=== PATIENT | female | born 1955 | race Native Hawaiian/Other Pacific Islander ===

== ENCOUNTER 2022-03-20 12:02 | Inpatient (IN) | payer OTHER, SELFPAY ==
[2022-03-20] VITALS (25 sets, daily range): BP systolic 95–144; BP diastolic 54–79; PULSE 60–88; RESP 12–19; TEMP 36.4–36.7; O2SAT 89–99; BMI 29.9
--- NOTE | 2022-03-20 12:56 | ECG_ITS ---
[facility] Test Date: 2022-03-20 Pat Name: Lupe Conway Department: Room: Gender: Female Welfare Interviewer: : 1955 Requested By: Mick Claudio Order Number: [id number] Abdulkadir MD: Jayne Bob M.D. Measurements Intervals [place] Rate: 65 P: 76 ND: 166 QRS: -11 QRSD: 87 T: 49 QT: 379 QTc: 394 Interpretive Statements SINUS RHYTHM ST DEVIATION AND MODERATE T-WAVE ABNORMALITY, CONSIDER ANTEROLATERAL ISCHEMIA [-0.1+ mV T-WAVE IN V3-V6] No previous ECG available for comparison Electronically Signed On 03-20-2022 21:48:43 CDT by Jayne Bob M.D. [id number]
--- NOTE | 2022-03-20 12:56 | XR_ITS ---
WS: [id number] Exam: XR chest 1V portable [id number] Date/Time of Exam: 03/20/2022 12:56 PM Reason For Exam: chest pain No priors. Findings: The lungs are clear and fully expanded. Costophrenic angles are sharp. No infiltrates. Bronchovascula r relief appears normal. Cardiac silhouette is unremarkable. Bony elements are intact. XR/XR chest 1V portable [id number] IMPRESSION: Unremarkable chest radiograph.
--- NOTE | 2022-03-20 13:09 | CT_ITS ---
WS: [id number] CTA THORACIC AORTA WITH AND WITHOUT CONTRAST. HISTORY: rule out dissection TECHNIQUE: CT imaging of the thorax is performed with and without contrast. After noncontrast imaging is performed, CT angiogram is performed during injection of Omnipaque 300; 95 mL IV.. Sagittal and c oronal reconstructions, sagittal and coronal MIP imaging is submitted. All CT scans at [facility] use at least one of these dose optimization techniques: automated exposure control; mA and/or kV adjustment per patient size (includes targeted exams where dose is matched to clinical indication); or iterative reconstruction. DLP: 1705.79 mGy.cm COMPARISON: None available. Good contrast opacification of the thoracic aorta. Normal-sized thoracic aorta. No dissection or sign ificant atherosclerotic plaque. Aortic root and ascending aorta and the arch are normal. Origin of th e great vessels is normal. Descending aorta with very minimal atherosclerotic plaque and intimal thic kening. Pulmonary artery is normal proximally. No dilatation. No proximal thrombus. Normal size heart . No pericardial or pleural effusion. Noncalcified ovoid 6 mm nodule RIGHT lower lobe. No pleural eff usion. No axillary or hilar adenopathy. Small hiatal hernia. There are several small low-attenuation lesions scattered throughout the liver consistent with cysts. There is a bulging of the contour and variable enhancement involving the spleen. Splenic artery is b eing draped anteriorly. Due to the configuration of the spleen, and underlying mass is not excluded. On the precontrast images there is no increased density to suggest hemorrhage. CT/CT angio chest [id number] IMPRESSION: 1. Very minimal atherosclerotic changes within the thoracic aorta. No dissecti on or aneurysm. 2. 6 mm noncalcified nodule RIGHT lower lobe. Recommend follow-up chest CT in 6 months. 3. Abnormal configuration and enhancement of the spleen. The abnormal enhancem ent may be secondary to the sinusoids and normal enhancement variability. The o verall configuration of the spleen is abnormal. At this time recommend ultrasou nd evaluation of the spleen to evaluate for mass. Follow-up evaluation by CT ma y be necessary.
[2022-03-20] MEDS: aspirin 81 mg Chew Tablet 324 MG PO (13:19)
[2022-03-20 13:20] LABS: Basophils # 0.1 10^3/uL (0.0-0.1); Basophils % 0.6 %; Eosinophils # 0.3 10^3/uL (0.0-0.8); Eosinophils % 3.5 %; Hematocrit 39.5 % (37.0-47.0); Hemoglobin 12.9 g/dL (11.5-15.3); Mean Corpuscular HGB Conc 32.7 g/dL (30.0-36.0); Mean Corpuscular Hemoglobin 27.6 pg (28.0-34.0); Mean Corpuscular Volume 84.6 fl (81-99); Mean Platelet Volume 10.6 fL (7.4-10.4); Monocytes # 0.5 10^3/uL (0.2-0.9); Monocytes % 6.1 %; Neutrophils # 5.09 10^3/uL (1.8-7.7); Neutrophils % 64.3 %; Nucleated Red Blood Cells % 0 %; Platelet Count 275 10^3/cmm (130-400); Red Blood Count 4.67 10^6/uL (4.1-5.3); White Blood Count 7.9 10^3/uL (4.0-10.0)
[2022-03-20 13:32] LABS: Troponin(5th) Baseline 72 ng/L (0-10)
[2022-03-20 13:34] LABS: Alanine Aminotransferase 19 U/L (0-33); Albumin Level 4.4 g/dL (3.5-5.2); Alkaline Phosphatase 89 IU/L (35-105); Anion Gap 17.8 (5-19); Aspartate Amino Transferase 19 U/L (0-32); Blood Urea Nitrogen 12 mg/dL (8-23); Calcium 10.3 mg/dL (8.5-10.5); Carbon Dioxide 20 mmol/L (22-29); Chloride 104 mmol/L (98-107); Globulin 2.5 g/dL (1.3-4.6); Glomerular Filtration Rate 71.8 mL/min (90-130); Glucose 94 mg/dL (65-115); Lipase 37 U/L (13-60); Osmolality Calculated 286 mOsm/kg (285-295); Potassium 3.8 mmol/L (3.5-5.1); Sodium 138 mmol/L (136-145); Total Bilirubin 0.2 mg/dL (0.15-1.2); Total Protein 6.9 g/dL (6.6-8.7)
--- NOTE | 2022-03-20 14:03 | W.ED.CHESTPA ---
HPI - Chest Pain General: Chief Complaint: Chest Pain Stated Complaint: chest pains Time Seen by Provider: 03/20/22 12:45 History of Present Illness: Patient comes in with chest pain. She describes it as midsternal pressure that radiates to her left arm and her jaw. Started last night, has been constant. Denies any known coronary artery disease. Associated symptoms: Deny abdominal pain, dyspnea, fever(s), nausea, palpitations or vomiting Review of Systems Const: Denies: fever(s) or body aches Eyes: Denies: change in vision or blurry vision ENMT: Denies: throat pain or odynophagia Card: Reports: chest pain; Denies: palpitations Resp: Denies: dyspnea or productive cough GI: Denies: abdominal pain, nausea or vomiting : Denies: flank pain or dysuria Musc: Denies: neck pain or back pain Skin/Breast: Denies: rash or pruritus Neuro: Denies: headache(s) or numbness in extremities Psych: Denies: anxiety or change in appetite Endo: Denies: polyuria or excessive sweating Physical Exam Const: COMMON NORMALS: no acute distress, patient oriented x3, healthy appearing and alert HENMT: COMMON NORMALS: normocephalic and atraumatic HEAD & SCALP: normocephalic and atraumatic Eye: COMMON NORMALS: Equal, round and reactive pupils present and EOMs intact bilaterally PUPIL: Yes Equal, round and reactive pupils present Neck/C-Spine: COMMON NORMALS: full ROM and supple Resp: COMMON NORMALS: normal respiratory effort, No retractions and No use of accessory muscles Cardio: COMMON NORMALS: regular rate and regular rhythm RATE: regular rate RHYTHM: regular rhythm GI: COMMON NORMALS: Normal to inspection, nondistended, normoactive bowel sounds present, Soft to palpation and non-tender PALPATION: Yes Soft to palpation Back/Pelvis: COMMON NORMALS: thoracic and lumbar spine normal to inspection and no thoracic nor lumbar tenderness Extremity: COMMON NORMALS: normal to inspection and full ROM Neuro: COMMON NORMALS: patient oriented x3 SENSORIUM/ORIENTATION: Yes alert Psych: COMMON NORMALS: mental status grossly normal and cooperative Skin: COMMON NORMALS: no rashes or lesions noted and no wounds GENERAL SKIN EXAM: no rashes or lesions noted Course Vital Signs: Vital signs: Vital Signs Temperature 97.6 F 03/20/22 12:27 Pulse Rate 88 03/20/22 17:12 Respiratory Rate 18 03/20/22 16:09 Blood Pressure 124/76 03/20/22 12:27 Pulse Oximetry 95 03/20/22 17:12 MDM - Chest Pain Medical Decision Making Patient comes in with chest pain. She describes it as midsternal pressure that radiates to her left arm and her jaw. Started last night, has been constant. Denies any known coronary artery disease. Physical exam is unremarkable. Will check labs, CT, EKG, x-ray give aspirin, give nitro sublingual, and reassess. On reassessment the patient states that her pain has come back and is worse than before. On physical exam she is writhing in the gurney holding her chest. Repeat EKG is concerning for ST elevation ID which is new when compared to the previous EKG done when she arrived. We activated the Sr. Payroll Manager. We will give her heparin bolus, sublingual nitro, IV morphine, and consult cardiology. Cardiology has seen the patient here in the department and will take her to the Sr. Payroll Manager. Lab Data : 03/20/22 12:40 03/20/22 12:40 Radiology Impressions Chest X-Ray 03/20/22 12:56 IMPRESSION: Unremarkable chest radiograph. Chest CTA 03/20/22 13:09 IMPRESSION: 1. Very minimal atherosclerotic changes within the thoracic aorta. No dissection or aneurysm. 2. 6 mm noncalcified nodule RIGHT lower lobe. Recommend follow-up chest CT in 6 months. 3. Abnormal configuration and enhancement of the spleen. The abnormal enhancement may be secondary to the sinusoids and normal enhancement variability. The overall configuration of the spleen is abnormal. At this time recommend ultrasound evaluation of the spleen to evaluate for mass. Follow-up evaluation by CT may be necessary. Laboratory Results WBC 7.9 10^3/uL (4.0-10.0) 03/20/22 12:40 RBC 4.67 10^6/uL (4.1-5.3) 03/20/22 12:40 Hgb 12.9 g/dL (11.5-15.3) 03/20/22 12:40 Hct 39.5 % (37.0-47.0) 03/20/22 12:40 MCV 84.6 fl (81-99) 03/20/22 12:40 MCH 27.6 pg (28.0-34.0) L 03/20/22 12:40 MCHC 32.7 g/dL (30.0-36.0) 03/20/22 12:40 RDW 14.0 % (12.1-15.1) 03/20/22 12:40 Plt Count 275 10^3/cmm (130-400) 03/20/22 12:40 MPV 10.6 fL (7.4-10.4) H 03/20/22 12:40 Neut % (Auto) 64.3 % 03/20/22 12:40 Lymph % (Auto) 25.0 % 03/20/22 12:40 [place] % (Auto) 6.1 % 03/20/22 12:40 Eos % (Auto) 3.5 % 03/20/22 12:40 Baso % (Auto) 0.6 % 03/20/22 12:40 Neut # (Auto) 5.09 10^3/uL (1.8-7.7) 03/20/22 12:40 Lymph # (Auto) 2.0 10^3/uL (0.8-4.8) 03/20/22 12:40 [place] # (Auto) 0.5 10^3/uL (0.2-0.9) 03/20/22 12:40 Eos # (Auto) 0.3 10^3/uL (0.0-0.8) 03/20/22 12:40 Baso # (Auto) 0.1 10^3/uL (0.0-0.1) 03/20/22 12:40 Nucleated RBC % (auto) 0 % 03/20/22 12:40 Nucleated RBCs # 0.0 /100WBC 03/20/22 12:40 Sodium 138 mmol/L (136-145) 03/20/22 12:40 Potassium 3.8 mmol/L (3.5-5.1) 03/20/22 12:40 Chloride 104 mmol/L (98-107) 03/20/22 12:40 Carbon Dioxide 20 mmol/L (22-29) L 03/20/22 12:40 Anion Gap 17.8 (5-19) 03/20/22 12:40 BUN 12 mg/dL (8-23) 03/20/22 12:40 Creatinine 0.8 mg/dL (0.5-0.9) 03/20/22 12:40 GFR Calculation 71.8 mL/min (90-130) L 03/20/22 12:40 Glucose 94 mg/dL (65-115) 03/20/22 12:40 Calculated Osmolality 286 mOsm/kg (285-295) 03/20/22 12:40 Calcium 10.3 mg/dL (8.5-10.5) 03/20/22 12:40 Total Bilirubin 0.2 mg/dL (0.15-1.2) 03/20/22 12:40 AST 19 U/L (0-32) 03/20/22 12:40 ALT 19 U/L (0-33) 03/20/22 12:40 Alkaline Phosphatase 89 IU/L (35-105) 03/20/22 12:40 Troponin T Baseline 72 ng/L (0-10) H 03/20/22 12:40 Troponin T 120 Minute 68.48 ng/L (0-10) H 03/20/22 14:40 Delta Troponin T -3.52 ABS# (0-10) L 03/20/22 14:40 Total Protein 6.9 g/dL (6.6-8.7) 03/20/22 12:40 Albumin 4.4 g/dL (3.5-5.2) 03/20/22 12:40 Globulin 2.5 g/dL (1.3-4.6) 03/20/22 12:40 Lipase 37 U/L (13-60) 03/20/22 12:40 Critical Care Time Critical Care Time: Critical Care Time: Yes Total Critical Care Time: 35 Attestation: This case had a high probability of a clinically significant, sudden, or life threatening deterioration of this patient's condition which required my full and direct attention, intervention and personal management. Discharge Plan Discharge Patient Disposition: Admitted As Inpatient Admit Provider: Kamar Moy Clinical Impression: ST elevation (STEMI) myocardial infarction Condition: Stable Coding Level of Care Code ED Research Software Engineer for [place] Fwd Exam Comprehensive
[2022-03-20] MEDS: iohexol 300 mg/mL 100 mL Btl IV (14:06)
[2022-03-20] MEDS: heparin 5,000 unit/mL INJ 1 mL 4000 UNIT IVP (14:56)
[2022-03-20] MEDS: nitroglycerin 0.4 mg sublingual Tablet SUBLINGUAL (14:56)
--- NOTE | 2022-03-20 14:56 | ECG_ITS ---
[facility] Test Date: 2022-03-20 Pat Name: Lupe Conway Department: Room: Gender: Female Order Entry Administrator: : 1955 Requested By: Mick Claudio Order Number: [id number] Abdulkadir MD: Jayne Bob M.D. Measurements Intervals [place] Rate: 59 P: 146 NM: 169 QRS: 8 QRSD: 88 T: 128 QT: 424 QTc: 421 Interpretive Statements ECTOPIC ATRIAL BRADYCARDIA POSSIBLE LEFT ATRIAL ENLARGEMENT [-0.1mV P-WAVE IN V1/V2] LATERAL MYOCARDIAL INFARCTION , PROBABLY RECENT Interpretation limited by baseline artifact Compared to ECG 03/20/2022 12:11:59 Bradycardia, nonsinus now present Myocardial infarct finding now present Sinus rhythm no longer present T-wave abnormality no longer present Possible ischemia no longer present Electronically Signed On 03-21-2022 11:47:49 CDT by Jayne Bob M.D. [id number]
[2022-03-20] MEDS: morphine 4 mg/mL SDV 1 mL IVP (14:57)
[2022-03-20] MEDS: clopidogrel 300 mg Tablet 600 MG PO (14:59)
--- NOTE | 2022-03-20 15:11 | P.HP_ITS ---
Providers/Chief Complaint Admitting Physician: Kamar Moy MD Chief Complaint: chest pains History of Present Illness Lupe Conway is a 66 year old female with no significant prior cardiac history has presented with chest pain symptoms. According to patient he has been having chest discomfort since last night. It is on and off. Radiates to the left arm and jaw. EKG initially showed some ST depressions however she developed more significant chest pain and on repeat EKG she had dynamic changes with borderline ST elevations in lateral leads. Her labs showed her initial troponin of 70. CT scan was performed to rule out aortic dissection which was negative for it. She was emergently taken to the cardiac Show Design Supervisor. Coronary angiogram showed patent coronary arteries with no significant stenosis. LV gram showed normal function Review of Systems Const: Denies: fever(s) or body aches Eyes: Denies: change in vision or blurry vision ENMT: Denies: throat pain or odynophagia Card: Reports: chest pain; Denies: palpitations Resp: Denies: dyspnea or productive cough GI: Denies: abdominal pain, nausea or vomiting : Denies: flank pain or dysuria Musc: Denies: neck pain or back pain Skin/Breast: Denies: rash or pruritus Neuro: Denies: headache(s) or numbness in extremities Psych: Denies: anxiety or change in appetite Endo: Denies: polyuria or excessive sweating Medications/Allergies Home Medications Medication Instructions Recorded Confirmed Last Taken Type baclofen 10 mg tablet 5 - 10 mg PO TID PRN 03/20/22 03/20/22 Unknown History dicyclomine 10 mg capsule 10 mg PO TID PRN 03/20/22 03/20/22 Unknown History fluoxetine 20 mg capsule 20 mg PO DAILY 03/20/22 03/20/22 03/19/22 History hydroxyzine HCl 10 mg tablet 10 mg PO TID PRN 03/20/22 03/20/22 Unknown History meclizine 25 mg tablet 25 mg PO TID PRN 03/20/22 03/20/22 Unknown History naproxen sodium 220 mg capsule 220 mg PO BID PRN 03/20/22 03/20/22 Unknown History sumatriptan succinate 50 mg tablet 50 mg PO Q2H PRN 03/20/22 03/20/22 Unknown History Allergies Allergy/AdvReac Type Severity Reaction Status Date / Time Beef Containing Products Allergy Severe Unknown Verified 03/20/22 13:43 Vitals/I&O/Wt Last Vital Signs Temp 97.6 F 03/20/22 12:27 Pulse 79 03/20/22 13:05 Resp 15 03/20/22 13:05 BP 124/76 03/20/22 12:27 Pulse Ox 99 03/20/22 13:05 Weight last 48 hrs Weight 180 lb Physical Exam Narrative: GENERAL: Patient is alert, awake and oriented x3. [] NECK: No jugular vein distension. [] HEENT: No cyanosis. No icterus. No pallor. [] HEART: Regular S1 and S2. No murmur, rub or gallop. [] LUNGS: Clear to auscultate bilaterally. [] ABDOMEN: Soft, nontender and nondistended. Positive bowel sounds. No guarding, rebound or tenderness. [] CENTRAL NERVOUS SYSTEM: Grossly nonfocal. [] EXTREMITIES: Lower extremities with no edema bilaterally. Pulses palpable in the lower extremities, both dorsalis pedis and posterior tibial. [] Data : 03/20/22 12:40 03/20/22 12:40 A&P Assessment and plan (1) NSTEMI (non-ST elevated myocardial infarction): Status: Acute (2) Chest pain: Status: Acute Plan Patient presented with chest pain and dynamic EKG changes. Coronary angiogram demonstrated patent coronary arteries with no significant stenosis. LV gram showed normal LV systolic function. Continue trending troponins. Continue aspirin. Ordered echocardiogram. We will consult medicine team for evaluation of alternate causes of chest discomfort. Attestations Medical Necessity Statement*: Care expected to cross 2 midnights. Coding Level of Care Code Acute Still Operator Whiskey for [facility] Patsy Diagnoses NSTEMI (non-ST elevated myocardial infarction) I21.4 Chest pain R07.9
--- NOTE | 2022-03-20 15:13 | XACV_ITS ---
Exam Room: 2 Ht: 165 cm Wt: 82 kg BSA: 1.96 m2 Gender: Female : 1955 Exam Priority: Routine Procedure(s): Procedure Description: Diagnostic procedure Procedure Description: Left Heart Catheterization Procedure Description: Left ventriculography Procedure Description: Miscellaneous Procedure Description: Angio-Seal Procedure Description: Coronary Angiography Diagnostic Cath Status: Emergency Diagnostic Findings * 66 year old female with no significant prior cardiac history has presented with chest pain symptoms. According to patient he has been having chest discomfort since last night. It is on and off. Radiates to the left arm and jaw. EKG initially showed some ST depressions however she developed more significant chest pain and on repeat EKG she had dynamic changes with borderline ST elevations in lateral leads. . * No significant disease noted in the Left Main, Left Anterior Descending, Right, or Circumflex coronary arteries. * Coronary angiography shows left dominance. PCI Status: Emergency Conclusions 1. Possible coronary vasospasm. 2. No significant disease noted in the Left Main, Left Anterior Descending, Right, or Circumflex coronary arteries. 3. Normal left ventricular systolic function. Ejection fraction of 65%. Recommendations * Transfer to ICU. * Aspirin and Plavix for atleast 1 year. * Start amlodipine. * Beta janet therapy. * Outpatient cardiology follow up in 4 weeks. Interventional RX Recommendation: medical therapy and/or counseling Diagnostic RX Recommendation: medical therapy and/or counseling Ventriculography Ejection Fraction: 65.0 % Pressures Phase:Rest AO : 97 / 67 ( 82 ) @ 4:30:00 PM 151 / 49 ( 96 ) @ 4:38:00 PM 142 / 56 ( 95 ) @ 4:38:00 PM LV : 138 / -18 / 12 @ 4:37:00 PM 144 / -16 / 15 @ 4:38:00 PM 144 / -17 / 14 @ 4:38:00 PM Valves Phase:DefaultPhase AV : 0.0 @ 3:47:44 PM 0.0 @ 3:47:44 PM AV Mean Gradient: 0.0 @ 3:47:44 PM 0.0 @ 3:47:44 PM Clinical Evaluation EBL: 5mL-10mL Procedural Details Procedure started. Pre-Procedure Time Out. Identified patient by full name and date of as verbalized by the patient/guarantor. Does the consent match the physician's order: N/A Emergent. Accurate & Complete Informed Consent: N/A Emergent. Inpatient/Outpatient History & Physical on Chart: N/A Emergent. If H&P is completed, is and addenduem needed: N/A Emergent; If yes, is the addendum complete: N/A Emergent. Visualize and Verify Site with Patient/Guarantor: N/A. Relevant Radiology Images available: N/A Emergent. Pre-op teaching completed and patient verbalized understanding. The risks, benefits, and alternatives of sedation and/or procedure were discussed by physician. The patient agrees to continue. [facility] Clinical Fraility Score: 3: Managing Well. [place] Expert Indications: ACS > 24 hours. Chest Pain Symptom Assessment: Typical Angina Symptoms. Cardiovascular Instability: Yes, if yes, Persistant Ischemic Symptoms. Correct patient, site and procedure confirmed by cath team. Current diagnosis: NSTEMI. PERRLA. Strong, equal hand inpatient services director bilaterally. Lungs clear x 5 lobes. IV Site on Arrival: 18 gauge in the right anticubital. IV Fluids: 0.9% NaCl at KVO. 0 mL infused prior to bed laborer. Pre Procedural Pulses: right radial was 2+. Oxygen started at 2liters/min via nasal canula. right groin was prepped with chloroprep then draped in the usual sterile fashion. right radial was prepped with chloroprep then draped in the usual sterile fashion. Baseline sample Acquired. HR: 64 BPM. Physician arrived. Physician scrubbed in. Immediate Pre-Procedure Time Out. Correct Patient: N/A Emergent; Correct Procedure: N/A Emergent; Correct Site: N/A Emergent; Correct Patient Position: N/A Emergent; Correct Supplies: N/A Emergent; Dried Flammable Prep: N/A Emergent; Blood Products Available: N/A Emergent;. Lidocaine 1% infiltrated to the right radial. Arterial access obtained. wire and needle out. Lidocaine 1% infiltrated to the right groin. An attempt to gain access to the right radial artery was unsuccessful. TR band placed. Arterial access obtained with micropuncture set. Current Diagnosis : NSTEMI. A 5 cambodian JL4 catheter in over wire. Multiple views taken of left coronary artery. Catheter removed over the standard wire. A 5 cambodian JR4 catheter in over wire. Multiple views taken of right coronary artery. Catheter removed over the standard wire. EDP Sample taken: LV 138/-19,12; HR: 66 BPM; SpO2: 100%. LV gram performed in SUT[place] @ 10 mL/second for a total of 30 mL. EDP Sample taken: LV 144/-17,15; HR: 69 BPM; SpO2: 99%. Pullback taken: LV 144/-18,14; AO 151/49(96); Mean: 0mmHg, Peak to Peak: 0mmHg, SEP: 19sec/min; HR: 70 BPM; SpO2: 99%. Catheter removed over the standard wire. A Right femoral angiogram was performed to determine safe placement of closure device. A Angio-Seal VIP ([facility]) was successful obtaining hemostatsis at the Right Femoral artery insertion site. Post Procedure: Pulses reassessed and unchanged. PERRLA. Strong, equal hand inpatient services director bilaterally. No VTE prophylaxis required. Medication's Wasted: Nitro = 49.8 mg. Total IV fluids: 100 mL. Contrast type used: Omnipaque 300 mgI/mL, 500 mL bottle. Post-op diagnosis: Normal Coronaries. Complications: None. Estimated blood loss: 5mL-10mL. Responsiveness - Normal response to verbal stimuli; alert and oriented, PERRLA. Airway - Unaffected, no intervention required; spontaneous ventilation. Circulation: W/N/L, pulses unchanged. Nausea/Vomiting: No. Procedure completed. Patient transferred by bed to ICU. Vital chart was stopped. Access Site Site: Right Femoral artery Sheath Size: 6 Fr Hemostasis Method: Angio-Seal VIP ([facility]) Hemostasis Success: Successful Procedure Medications Start: 3:16 PM Stop: 3:16 PM Medication: Versed Amount: 1 mg Route: I.V. Start: 3:18 PM Stop: 3:18 PM Medication: Fentanyl Amount: 25 mcg Route: I.V. Start: 3:18 PM Stop: 3:18 PM Medication: Fentanyl Amount: 25 mcg Route: I.V. Start: 3:21 PM Stop: 3:21 PM Medication: Versed Amount: 1 mg Route: I.V. Start: 3:23 PM Stop: 3:23 PM Medication: Nitrogylcerin Amount: 200 mcg Route: I.A. Start: 3:30 PM Stop: 3:30 PM Medication: Versed Amount: 0.5 mg Route: I.V. Start: 3:40 PM Stop: 3:40 PM Medication: Fentanyl Amount: 25 mcg Route: I.V. Start: 3:41 PM Stop: 3:41 PM Medication: Fentanyl Amount: 25 mcg Route: I.V. I, the attending physician, have reviewed and verified all procedure medications. Yes, all medications given per verbal order History/Risk Factors Hypertension: No Dyslipidemia: No Peripheral Arterial Disease (PAD): No Myocardial Infarction (PA): No Obesity: No Renal Disease: No Prior Interventions PCI: No CABG: No Valve Surgery: No Report Signatures Finalized by Kamar Moy MD on 03/30/2022 12:40 AM
[2022-03-20 15:15] LABS: Troponin 5 2HR 68.48 ng/L (0-10)
[2022-03-20 15:18] LABS: Troponin 5 2HR Delta -3.52 ABS# (0-10)
[2022-03-20] MEDS: fentaNYL 50 mcg/mL INJ 2mL IVP (16:09)
--- NOTE | 2022-03-20 16:54 | PC.NURSE ---
To floor: Pt brought to floor via bed by Woodworker staff. Pt is awake and oriented. TR band to right wrist in place with no drainage or bleeding. Right groin has transparent dressing with no drainange or bleeding. Pt has been oriented to room and call light is in place. Pt will be off bedrest at 2000 today.
--- NOTE | 2022-03-20 18:56 | ECG_ITS ---
[facility] Test Date: 2022-03-20 Pat Name: Lupe Conway Department: Room: [facility] Gender: Female Spragger: : 1955 Requested By: Mick Claudio Order Number: [id number] Abdulkadir MD: Jayne Bob M.D. Measurements Intervals [place] Rate: 63 P: 71 [place]: 179 QRS: -7 QRSD: 94 T: 61 QT: 449 QTc: 462 Interpretive Statements SINUS RHYTHM Compared to ECG 03/20/2022 14:41:03 Bradycardia, nonsinus no longer present Myocardial infarct finding no longer present Electronically Signed On 03-20-2022 22:04:34 CDT by Jayne Bob M.D. [id number]
--- NOTE | 2022-03-20 19:10 | PC.NURSE ---
Ingrid Patient complaining of nausea, no nausea medication ordered. Dr. Moy contacted and verbal order received for 4 mg Zofran IVP Q6H PRN for nausea/vomiting. See MAR for medication administration.
[2022-03-20 20:04] LABS: Troponin 5 6HR 156.7 ng/L (0-10); Troponin 5 6HR Delta 84.7 ng/L (0-12)
[2022-03-20] MEDS: ondansetron 2 mg/ML SDV 2 mL 4 MG IVP (20:19)
--- NOTE | 2022-03-20 22:57 | PC.NURSE ---
TR Band Removal Upon receiving patient, day nurse reported removing 5 ml of air out of an approximate total of 10 ml of patient's TR band. 2 more ml removed at 1914 and at 1929. Last 1.5 ml removed from TR band and TR band fully removed at 2022. No bleeding noted, gauze and clear dressing applied.
[2022-03-21] VITALS (21 sets, daily range): BP systolic 98–139; BP diastolic 55–95; PULSE 54–75; RESP 11–23; TEMP 36.5–36.7; O2SAT 93–98
[2022-03-21] MEDS: sodium chloride 0.9% 1,000 ML 100 ML IV (02:48)
[2022-03-21 03:53] LABS: Basophils # 0.1 10^3/uL (0.0-0.1); Basophils % 0.7 %; Eosinophils # 0.2 10^3/uL (0.0-0.8); Eosinophils % 2.2 %; Hematocrit 37.5 % (37.0-47.0); Hemoglobin 11.5 g/dL (11.5-15.3); Lymphocytes # 1.5 10^3/uL (0.8-4.8); Lymphocytes % 19.6 %; Mean Corpuscular HGB Conc 30.7 g/dL (30.0-36.0); Mean Corpuscular Hemoglobin 27.7 pg (28.0-34.0); Mean Corpuscular Volume 90.4 fl (81-99); Mean Platelet Volume 10.3 fL (7.4-10.4); Monocytes # 0.6 10^3/uL (0.2-0.9); Monocytes % 7.8 %; Neutrophils # 5.32 10^3/uL (1.8-7.7); Neutrophils % 69.3 %; Nucleated Red Blood Cells % 0 %; Platelet Count 249 10^3/cmm (130-400); Red Blood Count 4.15 10^6/uL (4.1-5.3); Red Cell Distribution Width 14.3 % (12.1-15.1); White Blood Count 7.7 10^3/uL (4.0-10.0)
[2022-03-21 04:06] LABS: Anion Gap 15.2 (5-19); Blood Urea Nitrogen 13 mg/dL (8-23); Calcium 9.5 mg/dL (8.5-10.5); Carbon Dioxide 21 mmol/L (22-29); Chloride 105 mmol/L (98-107); Glomerular Filtration Rate 83.7 mL/min (90-130); Glucose 106 mg/dL (65-115); Osmolality Calculated 285 mOsm/kg (285-295); Potassium 4.2 mmol/L (3.5-5.1); Sodium 137 mmol/L (136-145)
[2022-03-21] MEDS: acetaminophen 325 mg Tablet 650 MG PO (05:42)
--- NOTE | 2022-03-21 06:52 | PC.NURSE ---
Ambulation Patient ambulated several times throughout the night with no issues. Vitals all stable, no formation of hematomas on either right wrist or groin site, dressings still in place.
[2022-03-21] MEDS: fluoxetine 20 mg Capsule PO (07:55)
[2022-03-21] MEDS: aspirin 81 mg Chew Tablet PO (09:28)
--- NOTE | 2022-03-21 10:11 | USCV_ITS ---
Lupe Conway Age: 66 Gender: F : 1955 Exam Date: 03/21/2022 10:27 Ordering Phys: Kamar Moy M.D ([email or web address]) Technologist: Massiel Simmons Exam Location: [facility] [place] Indication: Chest pain BP: 123 / 94 HR: 66 Rhythm: Sinus Technical Quality: Adequate MEASUREMENTS (Male / Female) Normal Values 2D ECHO LV Diastolic Diameter PLAX 4.6 cm 4.2 - 5.9 / 3.9 - 5.3 cm LV Systolic Diameter PLAX 2.9 cm IVS Diastolic Thickness 1.0 cm 0.6 - 1.0 / 0.6 - 0.9 cm IVS Systolic Thickness 1.3 cm LVPW Diastolic Thickness 1.3 cm 0.6 - 1.0 / 0.6 - 0.9 cm LVPW Systolic Thickness 1.6 cm RV Chamber Size 2.4 cm LVOT Diameter 2.0 cm LV Ejection Fraction 2D Teich 66.1 % LV Ejection Fraction MOD 2C 69.6 % LV Ejection Fraction 2C AL 69.9 % LA Diameter 3.0 cm LA Width 2.6 cm LA Height 3.8 cm RA Width 2.8 cm RA Height 4.1 cm Aorta at Sinotubular Diameter 2.6 cm IVC Diameter 1.7 cm M-MODE Aortic Annulus Diameter 2.7 cm LA Ao Ratio MM 1.2 MV E Point Septal Separation 0.7 cm DOPPLER AV Peak Velocity 127.0 cm/s LVOT Peak Velocity 106.0 cm/s AV Area Cont Eq vti 2.8 cm squared AV Area Cont Eq pk 2.6 cm squared MV Area PHT 4.0 cm squared Mitral E to A Ratio 0.9 MV E' Velocity 49.5 cm/s Mitral E to MV E' Ratio 10.9 Mitral E to LV E' Lateral Ratio 11.0 Mitral E to LV E' Septal Ratio 10.9 TR Peak Velocity 262.0 cm/s TR Peak Gradient 27.5 mmHg TV Peak E Velocity 56.0 cm/s Right Atrial Pressure 3.0 mmHg Pulmonary Artery Systolic Pressu 30.5 mmHg PV Peak Velocity 93.0 cm/s RV Acceleration Time 0.1 s RV Ejection Time 0.3 s RV AcT/ET 0.3 FINDINGS Left Ventricle Normal left ventricular size. LV systolic function is normal with EF of 55-60%. No regional wall motion abnormalities. Diastolic function is normal Right Ventricle The right ventricle is normal in size and function. Right Atrium The right atrium is normal in size. Left Atrium The left atrium is normal in size. Mitral Valve Structurally normal mitral valve without significant stenosis or prolapse. There is trace mitral regurgitation. Aortic Valve Structurally normal aortic valve without significant sclerosis or stenosis. There is no aortic regurgitation. Tricuspid Valve Structurally normal tricuspid valve without significant stenosis. Trace tricuspid regurgitation. Pulmonary artery systolic pressure is normal. Pulmonic Valve Structurally normal pulmonic valve without significant stenosis. There is mild pulmonic regurgitation. Pericardium Normal pericardium without effusion. Aorta Normal ascending aorta dimension. IVC CONCLUSIONS LV systolic function is normal with EF of 55-60% Trace mitral regurgitation Trace tricuspid regurgitation Mild pulmonic regurgitation No comparison studies available Kamar Moy MD (Electronically Signed) Final Date: 23 Mar 2022 21:01 S
[2022-03-21] MEDS: clopidogrel 75 mg Tablet PO (11:19)
--- NOTE | 2022-03-21 12:56 | PM.DCS ---
Discharge Providers Date of Admission: 03/20/22 15:10 Date of Discharge: March 21, 2022 Attending Provider at Admission: Kamar Moy M.D Attending Provider at Discharge: Kamar Moy M.D Diagnoses at Discharge Discharge Diagnosis (1) NSTEMI (non-ST elevated myocardial infarction): Status: Acute (2) Chest pain: Status: Resolved Reason for Visit Reason for Visit: chest pains Brief History: ?66 year old female with no significant prior cardiac history has presented with chest pain symptoms.? According to patient he has been having chest discomfort since last night.? It is on and off.? Radiates to the left arm and jaw.? EKG initially showed some ST depressions however she developed more significant chest pain and on repeat EKG she had dynamic changes with borderline ST elevations in lateral leads.? Her labs showed her initial troponin of 70.? CT scan was performed to rule out aortic dissection which was negative for it. She was emergently taken to the cardiac Sales Development Specialist.? Hospital Course Hospital Course ?66 year old female with no significant prior cardiac history has presented with chest pain symptoms.? According to patient he has been having chest discomfort since last night.? It is on and off.? Radiates to the left arm and jaw.? EKG initially showed some ST depressions however she developed more significant chest pain and on repeat EKG she had dynamic changes with borderline ST elevations in lateral leads.? Her labs showed her initial troponin of 70.? CT scan was performed to rule out aortic dissection which was negative for it. She was emergently taken to the cardiac Sales Development Specialist.? Coronary angiogram showed patent coronary arteries with no significant stenosis. LV gram showed normal function. Likely has coronary vasospasm. If chest pain persist, will start patient on amlodipine. Patient was stable and was discharged home in a stable condition Physical Exam Narrative: GENERAL: Patient is alert, awake and oriented x3. [] NECK: No jugular vein distension. [] HEENT: No cyanosis. No icterus. No pallor. [] HEART: Regular S1 and S2. No murmur, rub or gallop. [] LUNGS: Clear to auscultate bilaterally. [] ABDOMEN: Soft, nontender and nondistended. Positive bowel sounds. No guarding, rebound or tenderness. [] CENTRAL NERVOUS SYSTEM: Grossly nonfocal. [] EXTREMITIES: Lower extremities with no edema bilaterally. Pulses palpable in the lower extremities, both dorsalis pedis and posterior tibial. 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 echo complete* [id number] Routine Ultrasound 03/21/22 10:11 Taken Radiology Impressions Chest X-Ray 03/20/22 12:56 IMPRESSION: Unremarkable chest radiograph. Chest CTA 03/20/22 13:09 IMPRESSION: 1. Very minimal atherosclerotic changes within the thoracic aorta. No dissection or aneurysm. 2. 6 mm noncalcified nodule RIGHT lower lobe. Recommend follow-up chest CT in 6 months. 3. Abnormal configuration and enhancement of the spleen. The abnormal enhancement may be secondary to the sinusoids and normal enhancement variability. The overall configuration of the spleen is abnormal. At this time recommend ultrasound evaluation of the spleen to evaluate for mass. Follow-up evaluation by CT may be necessary. Laboratory Results WBC 7.7 10^3/uL (4.0-10.0) 03/21/22 03:10 RBC 4.15 10^6/uL (4.1-5.3) 03/21/22 03:10 Hgb 11.5 g/dL (11.5-15.3) 03/21/22 03:10 Hct 37.5 % (37.0-47.0) 03/21/22 03:10 MCV 90.4 fl (81-99) D 03/21/22 03:10 MCH 27.7 pg (28.0-34.0) L 03/21/22 03:10 MCHC 30.7 g/dL (30.0-36.0) D 03/21/22 03:10 RDW 14.3 % (12.1-15.1) 03/21/22 03:10 Plt Count 249 10^3/cmm (130-400) 03/21/22 03:10 MPV 10.3 fL (7.4-10.4) 03/21/22 03:10 Neut % (Auto) 69.3 % 03/21/22 03:10 Lymph % (Auto) 19.6 % 03/21/22 03:10 [place] % (Auto) 7.8 % 03/21/22 03:10 Eos % (Auto) 2.2 % 03/21/22 03:10 Baso % (Auto) 0.7 % 03/21/22 03:10 Neut # (Auto) 5.32 10^3/uL (1.8-7.7) 03/21/22 03:10 Lymph # (Auto) 1.5 10^3/uL (0.8-4.8) 03/21/22 03:10 [place] # (Auto) 0.6 10^3/uL (0.2-0.9) 03/21/22 03:10 Eos # (Auto) 0.2 10^3/uL (0.0-0.8) 03/21/22 03:10 Baso # (Auto) 0.1 10^3/uL (0.0-0.1) 03/21/22 03:10 Nucleated RBC % (auto) 0 % 03/21/22 03:10 Nucleated RBCs # 0.0 /100WBC 03/21/22 03:10 Sodium 137 mmol/L (136-145) 03/21/22 03:10 Potassium 4.2 mmol/L (3.5-5.1) 03/21/22 03:10 Chloride 105 mmol/L (98-107) 03/21/22 03:10 Carbon Dioxide 21 mmol/L (22-29) L 03/21/22 03:10 Anion Gap 15.2 (5-19) 03/21/22 03:10 BUN 13 mg/dL (8-23) 03/21/22 03:10 Creatinine 0.7 mg/dL (0.5-0.9) 03/21/22 03:10 GFR Calculation 83.7 mL/min (90-130) L 03/21/22 03:10 Glucose 106 mg/dL (65-115) 03/21/22 03:10 Calculated Osmolality 285 mOsm/kg (285-295) 03/21/22 03:10 Calcium 9.5 mg/dL (8.5-10.5) 03/21/22 03:10 Total Bilirubin 0.2 mg/dL (0.15-1.2) 03/20/22 12:40 AST 19 U/L (0-32) 03/20/22 12:40 ALT 19 U/L (0-33) 03/20/22 12:40 Alkaline Phosphatase 89 IU/L (35-105) 03/20/22 12:40 Troponin T Baseline 72 ng/L (0-10) H 03/20/22 12:40 Troponin T 120 Minute 68.48 ng/L (0-10) H 03/20/22 14:40 Delta Troponin T -3.52 ABS# (0-10) L 03/20/22 14:40 Troponin T Hi Sens 6Hr 156.7 ng/L (0-10) H 03/20/22 19:12 Troponin T Hi Sens 6Hr Delta 84.7 ng/L (0-12) H* 03/20/22 19:12 Total Protein 6.9 g/dL (6.6-8.7) 03/20/22 12:40 Albumin 4.4 g/dL (3.5-5.2) 03/20/22 12:40 Globulin 2.5 g/dL (1.3-4.6) 03/20/22 12:40 Lipase 37 U/L (13-60) 03/20/22 12:40 Vitals Last Vital Signs Temp 97.7 F 03/21/22 04:00 Pulse 61 03/21/22 12:17 Resp 16 03/21/22 10:27 BP 121/61 03/21/22 12:02 Pulse Ox 98 03/21/22 08:36 Discharge Plan Discharge Patient Disposition: Home Condition: Stable Prescriptions: New aspirin 81 mg Tablet,Chewable 81 mg PO DAILY Qty: 90 3RF clopidogrel 75 mg Tablet 75 mg PO DAILY PRN (Reason: Post CO) Qty: 90 3RF metoprolol tartrate 25 mg Tablet 12.5 mg PO BID@0900,2100 Qty: 120 3RF Continued sumatriptan succinate 50 mg Tablet 50 mg PO Q2H PRN (Reason: Migraine Headache) 0RF Rx Instructions: do not exceed 4 doses per 24 hrs meclizine 25 mg Tablet 25 mg PO TID PRN (Reason: Dizziness) 0RF baclofen 10 mg Tablet 5 - 10 mg PO TID PRN (Reason: Pain) 0RF hydroxyzine HCl 10 mg Tablet 10 mg PO TID PRN (Reason: Anxiety) 0RF fluoxetine 20 mg capsule 20 mg PO DAILY 0RF dicyclomine 10 mg Capsule 10 mg PO TID PRN (Reason: Abdominal Pain) 0RF naproxen sodium 220 mg Capsule 220 mg PO BID PRN (Reason: Migraine Headache) 0RF Discharge Orders: Discharge Order (Routine); Ordered 03/21/22 Ordered By: Kamar Moy Referrals: Kamar Moy M.D [Physician] - 1 month (This appointment has been scheduled ,for one month follow up . Friday at time of 09:30 am ) Theresa Hay FNP [Nurse Practitioner] - 7-10 days (Theresa Hay APN nurse at [facility] for follow up appointment one week ,scheduled March at time of 09:30 am) Discharge Diet: Cardiac Discharge Activity: Increase activity as tolerated Patient Instructions: Metoprolol (By mouth), Aspirin (By mouth), Clopidogrel (By mouth) (Plavix), Heart Healthy Diet (DC), Angio-Seal (DC), Left Heart Catheterization (DC), Chest Pain Stoplight, Opioid Safety, Post Angiogram Home Care Instructions, Post Heart Attack Stoplight Activity Restrictions/Additional Instructions: Please do not lift more than 5 and 10 lbs pounds of weight for the next 5 days. Discharge Attestations Time Spent in Discharge Care*: greater than 30 min Quality Metrics Clinical Quality Measures [ Acute Myocardial Infaction { Clinical Trial Participant: No; Contraindication to aspirin: None; Aspirin prescribed; Contraindication to statin: None; Statin prescribed and Other; Contraindication to PCI: Intervention not indicated;}] Coding Level of Care Code Acute g FW DC note Diagnoses NSTEMI (non-ST elevated myocardial infarction) I21.4 Chest pain R07.9
--- NOTE | 2022-03-21 13:45 | PC.NURSE ---
called TIFFANIE at [facility] to verify if pt's new rx went through. 3 new meds have been sent to TIFFANIE at [facility].
--- NOTE | 2022-03-21 14:41 | PC.NURSE ---
Discharge Note Patient discharged to home via private vehicle accompanied by . Discharge instructions reviewed with patient and/or business office representative. Mobile pharmacy medications and/or prescriptions provided. Belongings/home medications returned. Post angiograms home care instructions discuss to pt. new meds dosing, timing and possible s/e educated to pt.
== END 2022-03-21 13:44 | disposition home or self-care (01) | DRG 287 ==
LOC: ER 14:04 → CCL 15:17 → ICU 17:46 → CCL 03-21 06:06 → ER 03-21 06:06 → ICU 03-21 06:06
PROVIDERS: Admitting Provider Internal Medicine; Emergency Provider Emergency Medicine; Visit Provider Internal Medicine
PROC: 4A023N7 Measurement of Cardiac Sampling and Pressure, Left Heart, Percutaneous Approach (ICD-10-PCS; principal; 2022-03-20 15:00)
DX: I20.1 Angina pectoris with documented spasm (principal)
CPT/HCPCS: 36415; 71045; 71275; 80048; 80053; 83690; 84484; 85025; 93005; 93306; 93452; 93458; 96360; 96374; 99152; 99153; 99285; C1760; C1769; C1887; C1894; J1644; J2250; J2270; J2405; J3010; J3490; J7030; Q9967

== ENCOUNTER → 2022-03-28 11:27 | Outpatient (BNVA) | payer OTHER, SELFPAY | PROVIDERS: PCP Family Medicine; Visit Provider Nurse Practitioner Family | DX: I21.4 Non-ST elevation (NSTEMI) myocardial infarction (principal) | CPT/HCPCS: 80048 ==

== ENCOUNTER 2022-07-11 05:33 | Day surgery (SDC) | payer OTHER, SELFPAY ==
[2022-07-10 12:41] VITALS: BMI 29.9
[2022-07-11] VITALS (7 sets, daily range): BP systolic 135–173; BP diastolic 69–87; PULSE 57–75; RESP 14–18; TEMP 36.3–36.9; O2SAT 95–100
--- NOTE | 2022-07-11 06:16 | W.PM.OPSUD ---
Surgery/Procedure H&P Update DATE OF PROCEDURE: July 11, 2022 DATE H&P PERFORMED: 06/17/22 PLANNED PROCEDURE: Operation Date: 07/11/22 07:00 Proposed Procedures p excision subcutaneous mass right arm 57926,R22.9(Right) - Ricki Pradhan DO
[2022-07-11] MEDS: sodium chloride 0.9% 1,000 ML 30 ML IV (07:05)
[2022-07-11] MEDS: ceFAZolin 2,000 MG in sodium chloride 0.9% (plus) 50 ML 100 MG IV (07:10)
--- NOTE | 2022-07-11 07:27 | ANES.PREANE2 ---
Pre-Anesthetic Assessment Height/Weight: Height 1.65 m Weight 81.647 kg Temp Pulse Resp BP Pulse Ox O2 Del Method 98.1 F 57 L 18 169/82 100 07/11/22 06:03 07/11/22 06:03 07/11/22 06:03 07/11/22 06:03 07/11/22 06:03 07/11/22 06:09 Preop Diagnosis: subcutaneous mass right arm Operation Date: 07/11/22 07:00 Proposed Procedures p excision subcutaneous mass right arm 80362,R22.9(Right) - Ricki Pradhan DO Familial anesthetic complications: none Was Beta Karmen taken within 24 hours: Yes Was Clonidine taken within 24 hours: N/A Last intake: Intake Last Liquid Date 07/10/22 Last Liquid Time 20:00 Last Solid Date 07/10/22 Last Solid Time 20:00 Social No alcohol and No tobacco Exam alert, oriented x 3, clear to auscultation bilaterally and regular rate & rhythm Airway Submandibular: within normal limits Cervical ROM: within normal limits Mallampati: Class II Dentition: full CV/HEM Hypertension Neuropsych Depression and Headache Anesthetic Plan ASA status: 2 Other Pertinent Information alpha-GAL Medications/Allergies Home Medications Medication Instructions Recorded Confirmed Last Taken Type baclofen 10 mg tablet 5 - 10 mg PO TID PRN Pain 03/20/22 07/11/22 Unknown History dicyclomine 10 mg capsule 10 mg PO TID PRN Abdominal Pain 03/20/22 07/10/22 Unknown History fluoxetine 20 mg capsule 20 mg PO DAILY 03/20/22 07/11/22 07/10/22 History hydroxyzine HCl 10 mg tablet 10 mg PO TID PRN Anxiety 03/20/22 07/10/22 Unknown History meclizine 25 mg tablet 25 mg PO TID PRN Dizziness 03/20/22 07/10/22 Unknown History naproxen sodium 220 mg capsule 220 mg PO BID PRN Migraine Headache 03/20/22 07/10/22 Unknown History sumatriptan succinate 50 mg tablet 50 mg PO Q2H PRN Migraine Headache 03/20/22 07/10/22 Unknown History aspirin 81 mg chewable tablet 81 mg PO DAILY #90 tabs 03/21/22 07/10/22 07/03/22 Rx amlodipine 2.5 mg tablet 2.5 mg PO DAILY #90 tabs 05/17/22 07/11/22 07/10/22 Rx clopidogrel 75 mg tablet 75 mg PO DAILY Post IN 05/17/22 07/10/22 07/03/22 History metoprolol tartrate 25 mg tablet 12.5 mg PO DAILY #120 tabs 05/17/22 07/11/22 07/09/22 Rx Allergies Allergy/AdvReac Type Severity Reaction Status Date / Time Beef Containing Products Allergy Severe Unknown Verified 07/10/22 12:38 lactose Allergy ALGY-Hives Verified 07/10/22 12:38 Pork/Porcine Containing Allergy ALGY-Hives Verified 07/10/22 12:38 Products Current Medications Generic Name Dose Route Start Last Admin Trade Name Freq PRN Reason Stop Dose Admin Sodium Chloride 1,000 mls @ 30 mls/hr 07/11/22 06:00 07/11/22 07:05 Sodium Chloride 0.9% IV 07/12/22 05:59 30 mls/hr .Q24H JASBIR Administration PFSH Anesthesia Medical History NSTEMI (non-ST elevated myocardial infarction) Surgical History Hx of bilateral breast reduction surgery Hx of colonoscopy Hx of tonsillectomy Social History Smoking and tobacco status: former smoker (many years ago) Data Anesthesia Cardiac Studies: Echocardiogram 03/21/22
--- NOTE | 2022-07-11 07:36 | PM.OP ---
Operative Report Date of procedure: July 11, 2022 Pre-op diagnosis: Preop Diagnosis subcutaneous mass right arm Post-op diagnosis: same Procedure done: Excision of subcutaneous mass right arm Specimens removed/disposition: Subcutaneous mass right arm Surgeon: Dr. Ricki Pradhan DO Estimated blood loss (mL): 1 Complications: None apparent Brief History: Patient with a long-term subcutaneous mass of her right arm. She desires excision. Risks and benefits were explained and documented. Procedure: The area was inspected prepped and draped in the usual sterile fashion. 2% lidocaine with epinephrine was used to anesthetize the area around the lesion which measured 5 centimeters in greatest diameter. A 15 blade scalpel then used to make an incision measuring 3.5 centimeters in length. Incision was carried down to subcutaneous tissue and the specimen was passed off. 3-0 Vicryl was used to approximate the dermis, and 4-0 Vicryl was use to close the skin in a running subcuticular fashion. Hemostasis was noted. Skin glue was used. Patient tolerated the procedure well.
--- NOTE | 2022-07-11 07:48 | SUR.PHASEI ---
0742 PT TO PACU 5 AWAKES TO VOICE, PT ON RA WITH GOOD RESP NOTED RT UPPER ARM WITH SKIN GLUE, D/I NO HEMATOMA NOTED DISTAL RT HAND PINK WARM WITH CAP REFILL LESS THAN 3 SECONDS. , BILAT SCDS ON , IV TO LT WRIST #20 WITH NS 600ML UP AT KVO RATE PER GRAVITY, MONITOR SR WITH NO ECTOPY, ID BRACELET TO LT WRIST , PT ID'D WITH 2 IDENTIFIERS.
--- NOTE | 2022-07-11 15:24 | ANE.PACU2 ---
Inpatient post-anesthesia follow up: Airway intact: Yes Vital signs: Temperature 98.3 F Pulse Rate 66 Respiratory Rate 18 Blood Pressure 135/87 Pulse Oximetry 100 Oxygen Delivery Me thod Room Air Oxygen Flow Rate Fraction of Inspir ed Oxygen Hydration adequate: Yes Nausea and vomiting: No Pain level: 1 Mental status: Baseline
== END 2022-07-11 08:45 | disposition home or self-care (01) ==
PROVIDERS: PCP Family Medicine; Visit Provider Surgery
PROC: (CPT 11404; principal; 2022-07-11 07:00)
DX: D17.21 Benign lipomatous neoplasm of skin and subcutaneous tissue of right arm (principal); I10 Essential (primary) hypertension; Z79.82 Long term (current) use of aspirin; I25.2 Old myocardial infarction
CPT/HCPCS: 11404; 12032; 88307; J3010; J7030

== ENCOUNTER 2022-09-26 21:31 | Emergency (ER) | payer OTHER, SELFPAY ==
[2022-09-26 21:43] VITALS: BP 127/69; PULSE 67; RESP 17; TEMP 36.5; O2SAT 100; BMI 30.7
--- NOTE | 2022-09-26 21:43 | XRR_ITS ---
PROCEDURE INFORMATION: Exam: XR Chest Exam date and time: 09/27/2022 12:10 AM Age: 67 years old Clinical indication: Chest pressure; Patient HX: C/O chest pain; Additional info: Cp TECHNIQUE: Imaging protocol: Radiologic exam of the chest. Views: 1 view. COMPARISON: CR XR chest 1V portable [id number] 03/20/2022 1:08 PM FINDINGS: Lungs: Stable moderate COPD . Pleural spaces: Unremarkable. No pleural effusion. No pneumothorax. Heart/Mediastinum: Unremarkable. No cardiomegaly. Bones/joints: Unremarkable. XR/XR chest 1V portable [id number] IMPRESSION: Stable moderate COPD .
--- NOTE | 2022-09-26 21:47 | ECG_ITS ---
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 Measurements Intervals [place] Rate: 71 P: 136 LA: 160 QRS: 0 QRSD: 85 T: 118 QT: 392 QTc: 428 Interpretive Statements ECTOPIC ATRIAL RHYTHM LEFT ATRIAL ENLARGEMENT [-0.15mV P-WAVE IN V1/V2] LOW QRS VOLTAGE IN PRECORDIAL LEADS [QRS DEFLECTION < 1.0 mV IN CHEST LEADS] NONSPECIFIC T-WAVE ABNORMALITY No previous ECG available for comparison Electronically Signed On 09-28-2022 7:50:59 RESIDENTIAL COLLECTIONS by Jayne Bob M.D. [id number]
[2022-09-26 23:04] LABS: Basophils % 0.3 %; Eosinophils # 0.2 10^3/uL (0.0-0.8); Eosinophils % 2.1 %; Hematocrit 40.2 % (37.0-47.0); Hemoglobin 12.8 g/dL (11.5-15.3); Lymphocytes # 0.6 10^3/uL (0.8-4.8); Lymphocytes % 5.6 %; Mean Corpuscular HGB Conc 31.8 g/dL (30.0-36.0); Mean Corpuscular Hemoglobin 27.5 pg (28.0-34.0); Mean Corpuscular Volume 86.5 fl (81-99); Mean Platelet Volume 10.2 fL (7.4-10.4); Monocytes # 0.4 10^3/uL (0.2-0.9); Monocytes % 3.6 %; Neutrophils % 87.8 %; Nucleated Red Blood Cells % 0 %; Platelet Count 290 10^3/cmm (130-400); Red Blood Count 4.65 10^6/uL (4.1-5.3); Red Cell Distribution Width 14.1 % (12.1-15.1); White Blood Count 11.3 10^3/uL (4.0-10.0)
[2022-09-26 23:23] LABS: Troponin(5th) Baseline 24 ng/L (0-10)
[2022-09-26 23:25] LABS: Alanine Aminotransferase 16 U/L (0-33); Albumin Level 4.4 g/dL (3.5-5.2); Alkaline Phosphatase 79 U/L (35-105); Anion Gap 17.7 (5-19); Aspartate Amino Transferase 16 U/L (0-32); Blood Urea Nitrogen 20 mg/dL (8-23); Calcium 10.2 mg/dL (8.5-10.5); Carbon Dioxide 19 mmol/L (22-29); Chloride 106 mmol/L (98-107); Globulin 2.4 g/dL (1.3-4.6); Glomerular Filtration Rate 55.3 mL/min (90-130); Glucose 134 mg/dL (65-115); Osmolality Calculated 293 mOsm/kg (285-295); Potassium 3.7 mmol/L (3.5-5.1); Sodium 139 mmol/L (136-145); Total Bilirubin 0.4 mg/dL (0.15-1.2); Total Protein 6.8 g/dL (6.6-8.7)
--- NOTE | 2022-09-26 23:43 | ECG_ITS ---
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 Measurements Intervals [place] Rate: 66 P: 57 [place]: 170 QRS: -9 QRSD: 93 T: 50 QT: 434 QTc: 455 Interpretive Statements SINUS RHYTHM MINIMAL ST DEPRESSION [0.025+ mV ST DEPRESSION] No previous ECG available for comparison Electronically Signed On 09-29-2022 20:00:24 CONCRETE BLOCK PLANT SUPERVISOR by Kamar Moy M.D. [id number]
[2022-09-27 00:07] VITALS: BP 159/78; PULSE 66; RESP 19; O2SAT 99
--- NOTE | 2022-09-27 00:26 | ED_ITS ---
HPI - General Adult General: Chief complaint: General Medical Stated complaint: CP Time Seen by Provider: 09/27/22 00:10 Source: patient Mode of arrival: ambulatory Limitations: no limitations History of Present Illness: 67-year-old female who is here with multiple complaints she states that over the last 2 to 3 days she has been having a cough and she is also had some chest pain with vomiting and diarrhea states she is also had a headache states it is worsened today. States she is had a hard time tolerating p.o. with the vomiting states her headache is an 8 out of 10 she does have a history of migraines states her pain is a sharp pain in her chest she denies any shortness of breath here. Vitals here are normal Associated symptoms: Reports chest pain, nausea and vomiting; Deny dyspnea, headache(s) or rash Review of Systems Const: Denies: fever(s), chills, body aches or change in appetite Eyes: Denies: blurry vision or eye discomfort ENMT: Denies: throat pain or dental pain Card: Reports: chest pain Resp: Denies: dyspnea GI: Reports: nausea, vomiting and diarrhea; Denies: abdominal pain : Denies: dysuria Musc: Denies: neck pain or back pain Skin/Breast: Denies: rash Neuro: Denies: headache(s) Psych: Denies: depression Mike/Lymph: Denies: easy bruising All/Imm: Denies: urticaria PFSH ED PFSH: Medical History NSTEMI (non-ST elevated myocardial infarction) Surgical History Hx of bilateral breast reduction surgery Hx of colonoscopy Hx of tonsillectomy Social History Smoking and tobacco status: never smoked Physical Exam Const: COMMON NORMALS: no acute distress, patient oriented x3 and healthy appearing HENMT: COMMON NORMALS: normocephalic and atraumatic HEAD & SCALP: normocephalic and atraumatic Eye: COMMON NORMALS: Equal, round and reactive pupils present and EOMs intact bilaterally PUPIL: Yes Equal, round and reactive pupils present Neck/C-Spine: COMMON NORMALS: full ROM and supple Chest: COMMONS NORMALS: normal inspection of the chest and normal palpation of entire chest wall Resp: COMMON NORMALS: normal respiratory effort, No retractions, No use of accessory muscles and clear to auscultation bilaterally AUSCULTATION: clear to auscultation bilaterally Cardio: COMMON NORMALS: regular rate, regular rhythm and No murmurs present (Cardio) RATE: regular rate RHYTHM: regular rhythm GI: COMMON NORMALS: Normal to inspection, nondistended, normoactive bowel sounds present, Soft to palpation, non-tender and no masses PALPATION: Yes Soft to palpation Extremity: COMMON NORMALS: normal to inspection and full ROM Neuro: COMMON NORMALS: patient oriented x3, moves all extremities and no focal motor deficits Psych: COMMON NORMALS: mental status grossly normal, Normal thought process present and cooperative THOUGHT PROCESS: Normal thought process present Skin: COMMON NORMALS: no rashes or lesions noted and no wounds GENERAL SKIN EXAM: no rashes or lesions noted Course Vital Signs: Vital signs: Vital Signs Temperature 97.7 F 09/26/22 21:43 Pulse Rate 78 09/27/22 02:49 Respiratory Rate 16 09/27/22 02:49 Blood Pressure 123/66 09/27/22 03:02 Pulse Oximetry 93 09/27/22 02:49 Oxygen Delivery Me thod 09/27/22 00:07 [facility] - General Adult Medical Decision Making Patient presents here with vomiting along with headaches and chest pain she feels much improved here after Zofran her 6-hour troponin is negative she had a cath in February that was normal she no signs acute coronary syndrome headache is resolved she stable for discharge she is to follow-up with her PCP and return if worsening she understands agrees to plan. Lab Data 09/26/22 22:42 09/26/22 22:42 Radiology Impressions Chest X-Ray 09/26/22 21:43 IMPRESSION: Stable moderate COPD . Laboratory Results WBC 11.3 10^3/uL (4.0-10.0) H 09/26/22 22:42 RBC 4.65 10^6/uL (4.1-5.3) 09/26/22 22:42 Hgb 12.8 g/dL (11.5-15.3) 09/26/22 22:42 Hct 40.2 % (37.0-47.0) 09/26/22 22:42 MCV 86.5 fl (81-99) 09/26/22 22:42 MCH 27.5 pg (28.0-34.0) L 09/26/22 22:42 MCHC 31.8 g/dL (30.0-36.0) 09/26/22 22:42 RDW 14.1 % (12.1-15.1) 09/26/22 22:42 Plt Count 290 10^3/cmm (130-400) 09/26/22 22:42 MPV 10.2 fL (7.4-10.4) 09/26/22 22:42 Neut % (Auto) 87.8 % 09/26/22 22: Lymph % (Auto) 5.6 % 09/26/22 22:42 [place] % (Auto) 3.6 % 09/26/22 22: Eos % (Auto) 2.1 % 09/26/22: Baso % (Auto) 0.3 % 09/26/22:42 Neut # (Auto) 9.90 10^3/uL (1.8-7.7) H 09/26/22 22:42 Lymph # (Auto) 0.6 10^3/uL (0.8-4.8) L 09/26/22 22:42 [place] # (Auto) 0.4 10^3/uL (0.2-0.9) 09/26/22 22:42 Eos # (Auto) 0.2 10^3/uL (0.0-0.8) 09/26/22: Baso # (Auto) 0.0 10^3/uL (0.0-0.1) 09/26/22 22:42 Nucleated RBC % (auto) 0 % 09/26/22: Nucleated RBCs # 0.0 /100WBC 09/26/22 22:42 Sodium 139 mmol/L (136-145) 09/26/22 22:42 Potassium 3.7 mmol/L (3.5-5.1) 09/26/22 22:42 Chloride 106 mmol/L (98-107) 09/26/22 22:42 Carbon Dioxide 19 mmol/L (22-29) L 09/26/22 22:42 Anion Gap 17.7 (5-19) 09/26/22 22:42 BUN 20 mg/dL (8-23) 09/26/22 22:42 Creatinine 1.0 mg/dL (0.5-0.9) H 09/26/22 22:42 GFR Calculation 55.3 mL/min (90-130) L 09/26/22 22:42 Glucose 134 mg/dL (65-115) H 09/26/22 22:42 Calculated Osmolality 293 mOsm/kg (285-295) 09/26/22 22:42 Calcium 10.2 mg/dL (8.5-10.5) 09/26/22 22:42 Total Bilirubin 0.4 mg/dL (0.15-1.2) 09/26/22 22:42 AST 16 U/L (0-32) 09/26/22 22:42 ALT 16 U/L (0-33) 09/26/22 22:42 Alkaline Phosphatase 79 U/L (35-105) 09/26/22 22:42 Troponin T Baseline 24 ng/L (0-10) H 09/26/22 22:42 Troponin T 120 Minute 35.55 ng/L (0-10) H 09/27/22 00:31 Delta Troponin T 11.55 ABS# (0-10) H* 09/27/22 00:31 Troponin T Hi Sens 6Hr 34.03 ng/L (0-10) H 09/27/22 04:15 Troponin T Hi Sens 6Hr Delta 10.03 ng/L (0-12) 09/27/22 04:15 Total Protein 6.8 g/dL (6.6-8.7) 09/26/22 22:42 Albumin 4.4 g/dL (3.5-5.2) 09/26/22 22:42 Globulin 2.4 g/dL (1.3-4.6) 09/26/22 22:42 Influenza Type A Ag negative (Negative) 09/27/22 00:31 Influenza Type B Ag negative (Negative) 09/27/22 00:31 EKG Data EKG 1: I personally reviewed and interpreted this EKG as follows: EKG interpretation date: 09/26/22 EKG interpretation time: 21:47 Interpretation: atrial rhythm hr [address] or t wave abnormalities qrs 85 qtc 415 Computer generated interpretation: Chest X-Ray 09/26/22 21:43 IMPRESSION: Stable moderate COPD . Discharge Plan Discharge Patient Disposition: Home Clinical Impression: Vomiting, Headache, Chest pain Condition: Stable Prescriptions: New ondansetron 4 mg tablet,disintegrating 4 mg PO Q6H PRN (Reason: nausea and vomiting) Qty: 14 0RF No Action clopidogrel 75 mg tablet 75 mg PO DAILY metoprolol tartrate 25 mg tablet 12.5 mg PO DAILY Qty: 120 3RF amlodipine 2.5 mg tablet 2.5 mg PO DAILY Qty: 90 3RF hydrocodone-acetaminophen 7.5-325 mg tablet 1 tab PO Q6H PRN (Reason: pain) Qty: 10 0RF sumatriptan succinate 50 mg Tablet 50 mg PO Q2H PRN (Reason: Migraine Headache) Rx Instructions: do not exceed 4 doses per 24 hrs meclizine 25 mg Tablet 25 mg PO TID PRN (Reason: Dizziness) baclofen 10 mg Tablet 5 - 10 mg PO TID PRN (Reason: Pain) hydroxyzine HCl 10 mg Tablet 10 mg PO TID PRN (Reason: Anxiety) fluoxetine 20 mg capsule 20 mg PO DAILY dicyclomine 10 mg Capsule 10 mg PO TID PRN (Reason: Abdominal Pain) naproxen sodium 220 mg Capsule 220 mg PO BID PRN (Reason: Migraine Headache) aspirin 81 mg Tablet,Chewable 81 mg PO DAILY Qty: 90 3RF Discharge Orders: Discharge ED (Routine); Ordered 09/27/22 Ordered By: Hans Cochran Referrals: Tess Hernandez DO [Primary Care Provider] - 1-3 days Discharge Diet: Advance as tolerated Discharge Activity: Resume usual activity Patient Instructions: Chest Pain (ED), General Headache (ED) Coding Level of Care Code ED Drain Cleaner Plumber for Chg Fwd Exam Comprehensive
[2022-09-27] MEDS: sodium chloride 0.9% 1,000 ML 999 ML IV (00:47)
[2022-09-27] MEDS: diphenhydrAMINE 50 mg/mL SDV 1mL 25 MG IVP (00:48)
[2022-09-27] MEDS: metoclopramide 5 mg/mL SDV 2 mL IVP (00:48)
[2022-09-27] MEDS: diphenoxylate/atropine Tablet 1 TAB PO (00:49)
[2022-09-27 00:59] LABS: Troponin 5 2HR 35.55 ng/L (0-10)
[2022-09-27 01:02] LABS: Influenza A by IFA negative (Negative); Influenza B by IFA negative (Negative)
[2022-09-27 01:06] LABS: Troponin 5 2HR Delta 11.55 ABS# (0-10)
[2022-09-27 02:42] VITALS: RESP 17
[2022-09-27] MEDS: morphine 4 mg/mL SDV 1 mL IVP (02:42)
[2022-09-27 02:49] VITALS: BP 176/90; PULSE 78; RESP 16; O2SAT 93
[2022-09-27 03:02] VITALS: BP 123/66
[2022-09-27 04:43] LABS: Troponin 5 6HR 34.03 ng/L (0-10)
[2022-09-27 04:54] LABS: Troponin 5 6HR Delta 10.03 ng/L (0-12)
[2022-09-27 05:04] VITALS: BP 117/60; PULSE 67; RESP 15; TEMP 36.7; O2SAT 96
== END 2022-09-27 05:17 | disposition home or self-care (01) ==
PROVIDERS: Emergency Provider Emergency Medicine; PCP Family Medicine
DX: R07.9 Chest pain, unspecified (principal); R51.9 Headache, unspecified; R11.11 Vomiting without nausea; Z79.82 Long term (current) use of aspirin; Z79.02 Long term (current) use of antithrombotics/antiplatelets; I25.2 Old myocardial infarction
CPT/HCPCS: 36415; 71045; 80053; 84484; 85025; 87804; 93005; 96361; 96374; 96375; 99285; J1200; J2270; J2765; J7030

== ENCOUNTER → 2023-02-06 10:54 | Outpatient (BNVA) | payer OTHER, SELFPAY | PROVIDERS: PCP Family Medicine; Visit Provider Internal Medicine Pulmonary Disease | DX: T78.40XA Allergy, unspecified, initial encounter (principal); R06.02 Shortness of breath; Z87.898 Personal history of other specified conditions | CPT/HCPCS: 36415; 82785; 85025; 86003 ==

== ENCOUNTER 2023-03-13 07:53 | Outpatient (CLI) | payer OTHER, SELFPAY ==
--- NOTE | 2023-03-13 08:00 | CT_ITS ---
WS: [id number] CT chest wo con [id number] HISTORY: f/u on lung nodule TECHNIQUE: Axial imaging performed through the thorax. Coronal and sagittal reformats are submitted. All CT scans at [facility] use at least one of these dose optimization techniques: automated exposure control; mA and/or kV adjustment per patient size (includes targeted exams where dose is mat ched to clinical indication); or iterative reconstruction. CONTRAST: None DLP: 350.21 mGy.cm COMPARISON: 03/20/2022 Lungs and central airway: No interval change in the 6 mm noncalcified nodule described in the RIGHT l ower lobe on the prior exam. There is an additional subpleural nodule LEFT lower lobe which is also u nchanged measuring 5 mm. No new mass or nodule. New. Pleura: Normal. No pleural effusion. Heart and pericardium: Normal size heart with no pericardial effusion. Mediastinum and damaris: No mediastinum or hilar adenopathy. Vessels: Normal size aortic and pulmonary artery. No coronary artery calcifications. Chest wall and lower neck: RIGHT posterior lateral chest wall lipoma 3.4 cm. Upper abdomen: Reidentified are multiple low-attenuation masses within this liver consistent with cys ts. Largest in the inferior RIGHT lobe measures 2.5 cm. No adrenal mass. Lobulated contour of the spl een. Spleen is unchanged in size and contour since 03/20/2022. Osseous structures: No destructive process. CT/CT chest wo con [id number] IMPRESSION: 1. No interval change of the subcentimeter, noncalcified bilateral lower lobe pulmonary nodules since 03/20/2022. With no elevated risk for malignancy no furt her follow-up is necessary. If there is a history of smoking consider additiona l [address] follow-up. 2. Hepatic cysts, unchanged.
[2023-03-13 08:50] VITALS: PULSE 63; RESP 20; O2SAT 100
[2023-03-13] MEDS: albuterol 2.5 mg/3 mL Neb INHALATION (08:50)
[2023-03-13 08:55] VITALS: PULSE 67
== END 2023-03-13 07:54 | disposition home or self-care (01) ==
PROVIDERS: PCP Family Medicine; Visit Provider Internal Medicine Pulmonary Disease
DX: R91.1 Solitary pulmonary nodule (principal); R06.02 Shortness of breath; K76.89 Other specified diseases of liver
CPT/HCPCS: 71250; 94060; 94618; 94726; 94729; J7613

== ENCOUNTER 2023-05-09 06:45 | Outpatient (CLI) | payer OTHER, SELFPAY ==
--- NOTE | 2023-05-09 07:00 | US_ITS ---
WS: [id number] ULTRASOUND ABDOMEN LIMITED INDICATION: Splenic mass TECHNIQUE: Ultrasound of the spleen and LEFT kidney. FINDINGS: Comparison CT chest March 13, 2023 Lobulated splenic contour as seen on the prior CT. Spleen measures 11.2 x 7.0 x 8.9 CM. Echogenic vag ue solid lesion measuring 7.6 x 6.1 cm with associated vascularity. This demonstrates slightly increa sed parenchymal echogenicity compared to the background spleen. This is indeterminant on this study but demonstrates intense enhancement on the prior CT March 20, 2022 . Prior CTA chest March 20, 2022 demonstrates a partially visualized spleen with intense masslike enhan cement in the splenic hilum. Recommend further evaluation with contrast-enhanced abdomen pelvis for c omparison to the prior CT to assess for change. No hydronephrosis in the LEFT kidney. US/US abdomen limited [id number] IMPRESSION: 1. Recommend contrast-enhanced CT abdomen pelvis for further evaluation of the spleen as described above. Recommend include arterial, portal venous, and bk yed images through the spleen.
== END 2023-05-09 06:46 | disposition home or self-care (01) ==
PROVIDERS: PCP Family Medicine; Visit Provider Internal Medicine Pulmonary Disease
DX: D73.9 Disease of spleen, unspecified (principal)
CPT/HCPCS: 76705

== ENCOUNTER 2023-06-11 17:53 | Emergency (ER) | payer OTHER, SELFPAY ==
[2023-06-11 18:44] VITALS: BP 158/83; PULSE 60; RESP 18; TEMP 36.6; O2SAT 100; BMI 31.6
[2023-06-11 19:30] LABS: Basophils % 0.5 %; Eosinophils # 0.4 10^3/uL (0.0-0.8); Eosinophils % 5.3 %; Hematocrit 38.8 % (37.0-47.0); Hemoglobin 12.3 g/dL (11.5-15.3); Lymphocytes % 26.3 %; Mean Corpuscular HGB Conc 31.7 g/dL (30.0-36.0); Mean Corpuscular Volume 85.3 fl (81-99); Mean Platelet Volume 9.9 fL (7.4-10.4); Monocytes # 0.5 10^3/uL (0.2-0.9); Monocytes % 6.6 %; Neutrophils # 4.55 10^3/uL (1.8-7.7); Neutrophils % 60.9 %; Nucleated Red Blood Cells % 0 %; Platelet Count 325 10^3/cmm (130-400); Red Blood Count 4.55 10^6/uL (4.1-5.3); Red Cell Distribution Width 13.8 % (12.1-15.1); White Blood Count 7.5 10^3/uL (4.0-10.0)
[2023-06-11 19:40] LABS: D Dimer 0.93 ug/mIFEU (0-0.59)
[2023-06-11 19:44] LABS: Alanine Aminotransferase 21 U/L (0-33); Albumin Level 4.2 g/dL (3.5-5.2); Alkaline Phosphatase 75 U/L (35-105); Anion Gap 15.8 (5-19); Aspartate Amino Transferase 22 U/L (0-32); Blood Urea Nitrogen 21 mg/dL (8-23); Calcium 10.1 mg/dL (8.5-10.5); Carbon Dioxide 21 mmol/L (22-29); Chloride 108 mmol/L (98-107); Glomerular Filtration Rate 62.5 mL/min (90-130); Glucose 98 mg/dL (65-115); Osmolality Calculated 295 mOsm/kg (285-295); Potassium 3.8 mmol/L (3.5-5.1); Sodium 141 mmol/L (136-145); Total Bilirubin 0.2 mg/dL (0.15-1.2); Total Protein 7.2 g/dL (6.6-8.7)
== END 2023-06-11 20:40 | disposition left against medical advice (07) ==
PROVIDERS: Nurse Practitioner Family; Emergency Provider Family Medicine; PCP Family Medicine
DX: Z53.21 Procedure and treatment not carried out due to patient leaving prior to being seen by health care provider (principal)
CPT/HCPCS: 36415; 80053; 85025; 85378

== ENCOUNTER 2025-02-13 14:15 | Emergency (ER) | payer OTHER, SELFPAY ==
[2025-02-13 14:17] VITALS: BP 166/83; PULSE 68; TEMP 36.7; O2SAT 100; BMI 29.9
--- NOTE | 2025-02-13 14:24 | ECG_ITS ---
[facility] Test Date: 2025-02-13 Pat Name: Lupe Gutiérrez Department: Room: Gender: Female Search Coordinator: : 1955 Requested By: Juan Luis Calixto Order Number: [id number] Abdulkadir MD: Esvin Medina M.D. Measurements Intervals [place] Rate: 61 P: 58 DC: 164 QRS: 5 QRSD: 98 T: 45 QT: 377 QTc: 383 Interpretive Statements SINUS RHYTHM Compared to ECG 09/27/2022 00:58:15 ST (T wave) deviation no longer present Electronically Signed On 02-14-2025 18:51:36 CDT by Esvin Medina M.D. [email or web address]
[2025-02-13 15:09] LABS: Basophils % 0.5 %; Eosinophils # 0.2 10^3/uL (0.0-0.8); Eosinophils % 2.2 %; Hematocrit 37.2 % (36-47); Lymphocytes # 1.6 10^3/uL (0.8-4.8); Lymphocytes % 18.9 %; Mean Corpuscular HGB Conc 32.3 g/dL (30-55); Mean Corpuscular Hemoglobin 27.3 pg (27-33); Mean Corpuscular Volume 84.5 fl (85-98); Mean Platelet Volume 10.1 fL (7.4-10.4); Monocytes # 0.4 10^3/uL (0.2-0.9); Monocytes % 5.3 %; Neutrophils # 5.99 10^3/uL (1.8-7.7); Neutrophils % 72.7 %; Nucleated Red Blood Cells % 0 %; Platelet Count 226 10^3/cmm (157-399); Red Cell Distribution Width 13.6 % (12.1-15.1); White Blood Count 8.24 10^3/uL (3.29-11.43)
--- NOTE | 2025-02-13 15:16 | CTR_ITS ---
PROCEDURE INFORMATION: Exam: CT Abdomen And Pelvis With Contrast Exam date and time: 02/13/2025 3:56 PM Age: 69 years old Clinical indication: Abdominal pain; Localized; Upper; Prior surgery; Surgery date: 6+ months; Surgery type: Gb; Additional info: Upper abd pain/dizzy TECHNIQUE: Imaging protocol: Computed tomography of the abdomen and pelvis with contrast. Radiation optimization: All CT scans at this facility use at least one of these dose optimization techniques: automated exposure control; mA and/or kV adjustment per patient size (includes targeted exams where dose is matched to clinical indication); or iterative reconstruction. Contrast material: OMNIPAQUE 350; Contrast volume: 100 ml; Contrast route: INTRAVENOUS (IV); COMPARISON: abdomen limited [id number] 05/09/2023 7:45 AM RADIATION DOSE METRICS: Total DLP (mGy-cm): 721.33 FINDINGS: Liver: Multiple hepatic hypodensities throughout the liver, with the largest in the right hepatic lobe segment 6 measuring 2.9 centimeters most likely representing hepatic cysts. Gallbladder and biliary ducts: Normal. No calcified stones. No ductal dilation. Pancreas: Normal. No ductal dilation. Spleen: Normal. No splenomegaly. Adrenal glands: Normal. No mass. Kidneys and ureters: No suspicious renal mass. No hydronephrosis or nephrolithiasis. Ureters are normal. There is a simple cyst in the right kidney. Stomach and bowel: There is marked pericecal fat stranding. Immediately inferior to the ileocecal valve, a round hyperdense focus measuring 1.5 ?? 0.8 cm is identified, likely representing a focal calcification. Adjacent to this finding, there is bowel wall thickening of the cecum. On sagittal imaging (Series 7, Image 57), a very thin, tubular structure is visualized, likely representing a normal appendix. Additionally, there are subcentimeter pericecal lymph nodes measuring up to 0.5 cm in short axis. No mechanical bowel obstruction. There are other scattered colonic diverticuli near the cecum. Appendix: See Stomach and bowel finding. Intraperitoneal space: Unremarkable. No free air. No significant fluid collection. Vasculature: Unremarkable. No abdominal aortic aneurysm. Lymph nodes: No lymphadenopathy by size criteria. Urinary bladder: Unremarkable as visualized. 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 Bones/joints: Unremarkable. No acute fracture. Soft tissues: Unremarkable. CT/CT abdomen pelvis w con* [id number] IMPRESSION: 1. Marked pericecal fat stranding with adjacent cecal wall thickening and a 1.5 ?? 0.8 cm hyperdense focus just inferior to the ileocecal valve, likely a focal calcification. The appendix appears normal on sagittal imaging. Findings may represent localized inflammation, such as focal cecal diverticulitis, versus colitis. Follow-up imaging after resolution of symptoms is recommended to exclude underlying neoplastic process. 2. 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 3. Subcentimeter pericecal lymph nodes (up to 0.5 cm) COMMENTS: Consistent with the [employer]'s Incidental Findings Committee white paper (J Am Kenrick Radiol 2018): Any incidental renal lesion less than 1 cm or classified as too small to characterize, or any incidental cystic renal lesion characterized as simple-appearing, is likely benign. No follow-up imaging is recommended for these lesions per consensus recommendations based on imaging criteria.
--- NOTE | 2025-02-13 15:16 | ED_ITS ---
HPI - Abdominal Pain 2 General: Chief Complaint: Abdominal Pain Stated Complaint: upper abd and back pain Time Seen by Provider: 02/13/25 14:50 Source: patient Mode of arrival: ambulatory Limitations: no limitations History of Present Illness: Patient is a 69-year-old female who presents to the emergency department complaining of epigastric abdominal pain for the past 5 to 6 days. States that the onset was gradual, overall has been intermittent since onset and she describes it as a stabbing sensation. She does not note any specific alleviating or exacerbating factors to the pain, does state that occasionally it will radiate back between both shoulder blades. She does note that she has never had any abdominal surgeries and still has her appendix and gallbladder. She states that she has been seen here in the emergency department for chest pain, states this does not feel similar and she is not having any chest pain or shortness of breath related to her epigastric pain. She does not report any vomiting, she took Tums last night and states this did not help. Further does not feel sick to her stomach, no diarrhea or constipation, no fevers, and no urinary symptoms. 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 Stating she is not having any pain at this time. Her vitals are unremarkable aside from mildly elevated blood pressure. Has not tried any other medications for the pain. MD elicited complaint: abdominal pain Onset (ago): day(s) Pain Consistency: intermittent Location: Epigastric Severity: moderate Quality: stabbing Radiation: back Exacerbating factors: nothing Relieving factors: nothing Associated Symptoms: Denies bloating, change in stool character, chills, constipation, diarrhea, dysuria, fever(s), hematochezia, nausea and vomiting Treatments prior to arrival: antacids Related Data Home Medications ?Medication ?Instructions ?Recorded ?Confirmed dicyclomine 10 mg capsule 10 mg PO TID PRN Abdominal P ain 03/20/22 02/13/25 meclizine 25 mg tablet 25 mg PO TID PRN Dizziness 0 03/20/22 02/13/25 sumatriptan succinate 50 mg tablet 50 mg PO Q2H PRN Mi graine Headache 03/20/22 02/13/25 epinephrine 0.3 mg/0.3 mL 0.3 mg IM Q10M PRN Allergic 02/13/25 02/13/25 injection, auto-injector (EpiPen) Reaction latanoprost 0.005 % eye drops 1 drp ophthalmic (eye) Q PM 02/13/25 02/13/25 Allergies Allergy/AdvReac Type Severity Reaction Status Date / Time Beef Containing Products Allergy Severe Unknown Verified 02/13/25 14:24 lactose Allergy ALGY-Hives Verified 02/13/25 14:24 Pork/Porcine Containing Allergy ALGY-Hives Verified 02/13/25 14:24 Products Review of Systems 2 General: Reports: 10 or more systems reviewed and unremarkable except in HPI and below Const: Denies: fever(s), chills, change in appetite, change in weight or diaphoresis ENMT: Denies: throat pain or hoarseness Card: Denies: chest pain, palpitations or lightheadedness Resp: Denies: dyspnea, productive cough or wheezing GI: Reports: abdominal pain; Denies: nausea, vomiting, diarrhea, constipation, bloating, change in stool character or hematochezia : Denies: flank pain, difficulty voiding, dysuria, urinary frequency or urinary urgency Musc: Reports: back pain; Denies: neck pain Skin/Breast: Denies: rash or new lesions Neuro: Reports: dizziness; Denies: headache(s) PFSH ED 2 PFSH: Medical History NSTEMI (non-ST elevated myocardial infarction) Surgical History Hx of colonoscopy Hx of bilateral breast reduction surgery Hx of tonsillectomy Social History Smoking and tobacco/nicotine status: never used tobacco/nicotine Physical Exam 2 Const: COMMON NORMALS: no acute distress, average body habitus, patient oriented x3, no limitations, healthy appearing, alert and well nourished G ENERAL APPEARANCE: cooperative and comfortable ORIENTATION/CONSCIOUSNESS: Yes awake Eye: COMMON NORMALS: Equal, round and reactive pupils present, EOMs intact bilaterally, conjunctivae normal and normal visual uribe by confrontation C ONJUNCTIVA: Yes conjunctivae normal PUPIL: Yes Equal, round and reactive pupils present Neck/C-Spine: COMMON NORMALS: full ROM, supple, no meningeal signs and no JVD Resp: COMMON NORMALS: normal respiratory effort, No retractions, No use of accessory muscles and clear to auscultation bilaterally AUSCULTATION: clear to auscultation bilaterally, no crackles, no rales, no rhonchi and no wheezes Cardio: COMMON NORMALS: no JVD, regular rate, regular rhythm, S1 normal heart sound present, S2 normal heart sound present, No gallops present (Cardio), No clicks present (Cardio), No murmurs present (Cardio), No rub (Cardio) and Peripheral pulses 2+ throughout RATE: regular rate RHYTHM: regular rhythm HEART SOUNDS: S1 normal heart sound present and S2 normal heart sound present PERIPHERAL PULSES: Peripheral pulses 2+ throughout GI: COMMON NORMALS: Normal to inspection, nondistended, normoactive bowel sounds present, Soft to palpation, No hepatosplenomegaly present and no masses AUSCULTATION: Yes normoactive bowel sounds PALPATION: Yes Soft to palpation, No Guarding due to palpation present (GI), No Rigid due to palpation and Yes No hepatosplenomegaly present RECTAL EXAM: deferred OTHER: Mild tenderness to the right upper quadrant with palpation : COMMON NORMALS: Yes no CVA tenderness BLADDER/KIDNEY EXAM: Yes no CVA tenderness Back/Pelvis: COMMON NORMALS: no CVA tenderness Extremity: COMMON NORMALS: normal to inspection and full ROM Neuro: COMMON NORMALS: patient oriented x3, moves all extremities, no focal motor deficits and no sensory deficits noted SENSORIUM/ORIENTATION: Yes alert MENINGEAL SIGNS: Yes no meningeal signs Psych: COMMON NORMALS: mental status grossly normal, cooperative and speech normal SPEECH: Yes normal speech Skin: COMMON NORMALS: no rashes or lesions noted GENERAL SKIN EXAM: no rashes or lesions noted Course 2 Vital Signs: Vital signs: Vital Signs Temperature 98.0 F 02/13/25 14:17 Pulse Rate 68 02/13/25 17:03 Respiratory Rate 16 02/13/25 16:30 Blood Pressure 155/83 02/13/25 17:03 Pulse Oximetry 100 02/13/25 17:03 Oxygen Delivery Me thod Room Air 02/13/25 15:23 MDM - Abdominal Pain Medical Decision Making Patient presented for 5 to 6 days of upper abdominal pain, overall been intermittent and she was having any pain at time of exam. Overall exam unremarkable, labs have been unremarkable aside from minimal hypertension. No previous abdominal surgeries, and other than pain and dizziness had no other associated symptoms to report. Her lab work was normal, specifically hemoglobin was within normal limits and there was no elevation in her white count. Lipase was normal and rest of her lab work unremarkable. On CT there was evidence of a focal calcification to area inferior to the ileocecal valve, this was not where she was tender and there was recommendation that this be followed up on. She was rechecked and still pain-free, and with no signs of infection on her lab work or with her vitals will not treat with antibiotics at this time ultimately will refer her to general surgery for close outpatient evaluation. She is comfortable with discharge home at this time and treating at home until follow- up, the meantime I told her to return if there is any fever, diarrhea or blood in stool, or any other concerns that she has. She agrees with this plan discharge at this time. Lab Data 02/13/25 14:59 02/13/25 14:59 Labs/Radiology: Radiology Impressions Abdomen/Pelvis CT 02/13/25 15:16 IMPRESSION: 1. Marked pericecal fat stranding with adjacent cecal wall thickening and a 1.5 ?? 0.8 cm hyperdense focus just inferior to the ileocecal valve, likely a focal calcification. The appendix appears normal on sagittal imaging. Findings may represent localized inflammation, such as focal cecal diverticulitis, versus colitis. Follow-up imaging after resolution of symptoms is recommended to exclude underlying neoplastic process. 2. 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 3. Subcentimeter pericecal lymph nodes (up to 0.5 cm) COMMENTS: Consistent with the [employer]'s Incidental Findings Committee white paper (J Am Kenrick Radiol 2018): Any incidental renal lesion less than 1 cm or classified as too small to characterize, or any incidental cystic renal lesion characterized as simple-appearing, is likely benign. No follow-up imaging is recommended for these lesions per consensus recommendations based on imaging criteria. Laboratory Results WBC 8.24 10^3/uL (3.29-11.43) 02/13/25 14:59 RBC 4.40 10^6/uL (3.85-5.65) 02/13/25 14:59 Hgb 12.00 g/dL (11.27-16.99) 02/13/25 14:59 Hct 37.2 % (36-47) 02/13/25 14:59 MCV 84.5 fl (85-98) L 02/13/25 14:59 MCH 27.3 pg (27-33) 02/13/25 14:59 MCHC 32.3 g/dL (30-55) 02/13/25 14:59 RDW 13.6 % (12.1-15.1) 02/13/25 14:59 Plt Count 226 10^3/cmm (157-399) 02/13/25 14:59 MPV 10.1 fL (7.4-10.4) 02/13/25 14:59 Neut % (Auto) 72.7 % 02/13/25 14:59 Lymph % (Auto) 18.9 % 02/13/25 14:59 [place] % (Auto) 5.3 % 02/13/25 14:59 Eos % (Auto) 2.2 % 02/13/25 14:59 Baso % (Auto) 0.5 % 02/13/25 14:59 Neut # (Auto) 5.99 10^3/uL (1.8-7.7) 02/13/25 14:59 Lymph # (Auto) 1.6 10^3/uL (0.8-4.8) 02/13/25 14:59 [place] # (Auto) 0.4 10^3/uL (0.2-0.9) 02/13/25 14:59 Eos # (Auto) 0.2 10^3/uL (0.0-0.8) 02/13/25 14:59 Baso # (Auto) 0.0 10^3/uL (0.0-0.1) 02/13/25 14:59 Nucleated RBC % (auto) 0 % 02/13/25 14:59 Nucleated RBCs # 0.0 /100WBC 02/13/25 14:59 Sodium 141 mmol/L (136-145) 02/13/25 14:59 Potassium 3.4 mmol/L (3.5-5.1) L 02/13/25 14:59 Chloride 107 mmol/L (98-107) 02/13/25 14:59 Carbon Dioxide 20 mmol/L (22-29) L 02/13/25 14:59 Anion Gap 17.4 (5-19) 02/13/25 14:59 BUN 15 mg/dL (8-23) 02/13/25 14:59 Creatinine 0.7 mg/dL (0.5-0.9) 02/13/25 14:59 GFR Calculation 83.0 mL/min (90-130) L 02/13/25 14:59 Glucose 91 mg/dL (65-115) 02/13/25 14:59 Calculated Osmolality 292 mOsm/kg (285-295) 02/13/25 14:59 Calcium 9.6 mg/dL (8.5-10.5) 02/13/25 14:59 Total Bilirubin 0.3 mg/dL (0.15-1.2) 02/13/25 14:59 AST 10 U/L (0-32) 02/13/25 14:59 ALT 11 U/L (0-33) 02/13/25 14:59 Alkaline Phosphatase 77 U/L (35-105) 02/13/25 14:59 Total Protein 6.9 g/dL (6.6-8.7) 02/13/25 14:59 Albumin 3.9 g/dL (3.5-5.2) 02/13/25 14:59 Globulin 3.0 g/dL (1.3-4.6) 02/13/25 14:59 Lipase 36 U/L (13-60) 02/13/25 14:59 Urine Color Yellow (Yellow) 02/13/25 15:31 Urine Appearance Clear (CLEAR) 02/13/25 15:31 Urine pH 7.5 (5-7) 02/13/25 15:31 Ur Specific [place] 1.007 (1.005-1.030) 02/13/25 15:31 Urine Protein Negative (Negative) 02/13/25 15: Urine Glucose (UA) Negative (Normal) 02/13/25 15:31 Urine Ketones Negative (Negative) 02/13/25 15:31 Urine Blood Negative (Negative) 02/13/25 15:31 Urine Nitrate Negative (Negative) 02/13/25 15: Urine Bilirubin Negative (Negative) 02/13/25 15:31 Urine Urobilinogen 1.0 mg/dL (Negative) 02/13/25 15:31 Ur Leukocyte Esterase Negative (Negative) 02/13/25 15:31 Urine RBC 0-2 /hpf (0-2) 02/13/25 15:31 Urine WBC 0-5 /hpf (0-5) 02/13/25 15:31 Ur Squamous Epith Cells 0-5 /hpf (0-5) 02/13/25 15:31 Amorphous Sediment Not Reportable 02/13/25 15:31 Urine Bacteria None seen /hpf (NONE) 02/13/25 15:31 Hyaline Casts 0-4 /lpf H 02/13/25 15:31 All radiology interpretation(s) finalized by discharge Discharge Plan Discharge Patient Disposition: Home Clinical Impression: Acute upper abdominal pain Condition: Stable Prescriptions: No Action latanoprost 0.005 % drops 1 drp ophthalmic (eye) QPM epinephrine [EpiPen] 0.3 mg/0.3 mL Auto-Injector 0.3 mg IM Q10M PRN (Reason: Allergic Reaction) Rx Instructions: for 2 doses sumatriptan succinate 50 mg Tablet 50 mg PO Q2H PRN (Reason: Migraine Headache) Rx Instructions: do not exceed 4 doses per 24 hrs meclizine 25 mg Tablet 25 mg PO TID PRN (Reason: Dizziness) dicyclomine 10 mg Capsule 10 mg PO TID PRN (Reason: Abdominal Pain) Discharge Orders: Discharge ED (Routine); Ordered 02/13/25 Ordered By: Edwardo Lance Referrals: Tess Hernandez DO [Primary Care Provider] - Patient Instructions: Abdominal Pain (ED) Activity Restrictions/Additional Instructions: Please follow-up with GI/general surgery as we discussed, await a call to schedule this appointment. GI soft diet as we discussed. Make sure that you are drinking plenty of fluids. Please return with any fever, vomiting, or other worsening of symptoms or other concerns you have. Print Language: Albanian Coding Level of Care Code ED Transport Tech for Cheyanne Garner
[2025-02-13 15:23] VITALS: BP 170/86; PULSE 67; RESP 14; O2SAT 100
[2025-02-13 15:31] LABS: Alanine Aminotransferase 11 U/L (0-33); Albumin Level 3.9 g/dL (3.5-5.2); Alkaline Phosphatase 77 U/L (35-105); Anion Gap 17.4 (5-19); Aspartate Amino Transferase 10 U/L (0-32); Blood Urea Nitrogen 15 mg/dL (8-23); Calcium 9.6 mg/dL (8.5-10.5); Carbon Dioxide 20 mmol/L (22-29); Chloride 107 mmol/L (98-107); Creatinine Clr Calc Pharmacy 70.0508; Glucose 91 mg/dL (65-115); Lipase 36 U/L (13-60); Osmolality Calculated 292 mOsm/kg (285-295); Potassium 3.4 mmol/L (3.5-5.1); Sodium 141 mmol/L (136-145); Total Bilirubin 0.3 mg/dL (0.15-1.2); Total Protein 6.9 g/dL (6.6-8.7)
[2025-02-13 15:38] LABS: Bilirubin Urine Negative (Negative); Blood Urine Negative (Negative); Glucose Urine UA Negative (Normal); Ketones Urine Negative (Negative); Leukocyte Esterase Urine Negative (Negative); Nitrate Urine Negative (Negative); Protein Urine Negative (Negative); Specific Gravity, Urine 1.007 (1.005-1.030); Urine Appearance Clear (CLEAR); Urine Color Yellow (Yellow); pH Urine 7.5 (5-7)
--- NOTE | 2025-02-13 15:41 | PC.PHAR ---
Pt states only has 5 medications now and 4 are prn
[2025-02-13 15:42] LABS: Add Urine Microscopic? YES; Bacteria Urine None Seen /hpf; Hyaline Casts Urine 0-4 /lpf; RBC Urine 0-2 /hpf (0-2); Squamous Epithelial Cell Urine 0-5 /hpf (0-5); WBC Urine 0-5 /hpf (0-5)
[2025-02-13] MEDS: iohexol 350 mg/mL 500 mL Btl (per mL) IV (16:04)
[2025-02-13 16:30] VITALS: BP 180/88; PULSE 74; RESP 16; O2SAT 100
[2025-02-13 17:03] VITALS: BP 155/83; PULSE 68; O2SAT 100
--- NOTE | 2025-02-14 07:35 | DCPLANNER ---
messaged gen surgery for er f/u
== END 2025-02-13 17:05 | disposition home or self-care (01) ==
PROVIDERS: Emergency Provider Physician Assistant; PCP Family Medicine
DX: R10.10 Upper abdominal pain, unspecified (principal)
CPT/HCPCS: 36415; 74177; 80053; 81001; 83690; 85025; 93005; 99285